=== PATIENT | male | born 1985 | race Caucasian/White ===

== ENCOUNTER 2017-07-26 07:15 | Emergency (ER) | payer OTHER ==
[2017-07-26 07:27] VITALS: BP 115/74
--- NOTE | 2017-07-26 11:18 | UC ---
Hansa Gould Gabriel, scribed for Chuy Lewis MD on 07/26/17 at 0737 . General HPI - HPI Summary HPI Summary: This patient is a 31 year old M presenting to [facility] requesting a albuterol inhaler refill. He states he does not have a primary care provider to do the refill and only uses it occasionally. He has not had any asthma exacerbation within the last year. The patient has not other complaints at this time. - History of Current Complaint Chief Complaint: UCMedRefill Stated Complaint: MED REFILL Time Seen by Provider: 07/26/17 07:22 Hx Obtained From: Patient Onset/Duration: Still Present Timing: Constant Current Severity: None Pain Intensity: 0 Associated Signs & Symptoms: Positive: Other - none - Allergy/Home Medications Allergies/Adverse Reactions: Allergies Allergy/AdvReac Type Severity Reaction Status Date / Time No Known Allergies Allergy Verified 07/26/17 07:23 PMH/Surg Hx/FS Hx/Imm Hx Respiratory History: Asthma Other History Of: Negative For: Hepatitis C, Anticoagulant Therapy - Surgical History Surgical History: Yes Surgery Procedure, Year, and Place: ta - Family History Known Family History: Positive: Diabetes Negative: Hypertension, Renal Disease, Respiratory Disease - Social History Alcohol Use: Weekly Alcohol Amount: 3-5/week Substance Use Type: Marijuana Substance Use Comment - Amount & Last Used: 2-3times per month Smoking Status (MU): Former Smoker Type: eCigarettes Amount Used/How Often: vape- 20-30times per day Review of Systems Constitutional: Negative Skin: Negative Eyes: Negative ENT: Negative Respiratory: Negative Cardiovascular: Negative Gastrointestinal: Negative Genitourinary: Negative Motor: Negative Neurovascular: Negative Musculoskeletal: Negative Neurological: Negative Psychological: Negative All Other Systems Reviewed And Are Negative: Yes Physical Exam - Summary Physical Exam Summary: VITAL SIGNS: Reviewed. GENERAL: Patient is a well-developed and nourished male who is lying comfortable in the stretcher. Patient is not in any acute respiratory distress. HEAD AND FACE: Normocephalic EYES: PERRLA, EOMI x 2. EARS: Hearing grossly intact. MOUTH: Oropharynx within normal limits. NECK: Supple, trachea is midline, no adenopathy, no JVD, no carotid bruit. CHEST: Symmetric, no tenderness at palpation LUNGS: Clear to auscultation bilaterally. No wheezing or crackles. CVS: Regular rate and rhythm, S1 and S2 present, no murmurs or gallops appreciated. ABDOMEN: Soft, non-tender. Bowel sounds are normal. No abdominal abnormal pulsations. EXTREMITIES: Full ROM in all major joints, no edema, no cyanosis or clubbing. NEURO: Alert and oriented x 3. No acute neurological deficits. Speech is normal and follows commands. SKIN: Dry and warm Triage Information Reviewed: Yes Vital Signs: Initial Vital Signs Temp 98.0 F 07/26/17 07:23 Pulse 68 07/26/17 07:23 Resp 16 07/26/17 07:23 BP 115/74 07/26/17 07:23 Pulse Ox 97 07/26/17 07:23 Vital Signs Reviewed: Yes Course/Dx - Course Course Of Treatment: I discussed all the findings with the patient. Patient was instructed to return to the urgent care or go to ER immediately if any of the symptoms return or worsens. Plan of care was discussed with the patient, and patient understands and agrees. All questions were answered to patient satisfaction. There were no further complaints or concerns. - Differential Dx - Multi-Symptom Provider Diagnoses: asthma Discharge - Sign-Out/Discharge Documenting (check all that apply): Discharge/Admit/Transfer - Discharge Plan Condition: Stable Disposition: HOME Prescriptions: Albuterol HFA INHALER* [Ventolin HFA Inhaler*] 1 - 2 puff INH Q4H PRN #1 mdi PRN Reason: wheeze Patient Education Materials: Asthma (ED) Referrals: [facility] REFERRAL [Outside] No Primary Care Phys,NOPCP [Primary Care Provider] - Additional Instructions: Take medications as instructed Increase your fluid intake Return to the if symptoms worsen The documentation as recorded by the Hansa delgado Gabriel accurately reflects the service I personally performed and the decisions made by me, Chuy Lewis MD.
== END 2017-07-26 07:43 | disposition home or self-care (01) ==
LOC: UCEAST 07:15
DX: J45.909 Unspecified asthma, uncomplicated (principal); Z76.0 Encounter for issue of repeat prescription; Z87.891 Personal history of nicotine dependence
CPT/HCPCS: 99212; G0463